=== PATIENT | female | born 1945 | race Caucasian/White ===

== ENCOUNTER 2016-12-04 20:04 | Emergency (ER) | payer OTHER ==
[~2016-12-04] VITALS: Ht 154.9 cm; Wt 51.3 kg
--- NOTE | ~2016-12-04 | CT71 ---
[facility] A [facility] RADIOLOGY TEXT RESULTS PATIENT: DERRICK DHILLON LOCATION: SED : 46 UNIT #: [id number] AGE: [address]: Marck López MD SEX: F ORDER DR: [id number] [place] [id number] E MR#: [id number] Acc #: [id number] NAME: DERRICK DHILLON. : 1945 SEX: F STUDY DATE/TIME: 12/04/2016 21:27 UNIT: SED ROOM: STUDY DESCRIPTION: CT Head Wo Contrast Attending Physician: Marck López M.D. Ordering Physician: Marck López M.D. MEDICAL IMAGING REPORT This report is preliminary unless electronic signature is present. EXAM CT brain without contrast HISTORY Syncope today. TECHNIQUE This CT exam was performed with one or more of the following radiation dose reduction techniques: automatic control, adjustment of mA and/or kV according to patient size, and iterative reconstruction. FINDINGS CT brain without contrast demonstrates no intracranial hemorrhage, mass or edema. Multiple small chronic lacunar infarcts in the basal ganglia bilaterally. Mild chronic ischemic changes in the deep white matter bilaterally. Prominent CSF space along the superior right frontal convexity at the vertex is stable compared to 09/10/2015. IMPRESSION No acute findings Dictated by... Derek Longoria M.D. THIS IS AN ELECTRONICALLY VERIFIED REPORT Derek Longoria M.D. at 12/05/2016 6:10 PM DFL/rnr TD: 12/05/2016 03:55 JOB #: [id number] MEDICAL IMAGING REPORT [facility] A [facility] RADIOLOGY TEXT RESULTS PATIENT: DERRICK DHILLON LOCATION: SED : 46 UNIT #: [id number] AGE: [address]: Marck López MD SEX: F ORDER DR: Page 1 of 1
--- NOTE | ~2016-12-04 | EKG ---
PATIENT: DERRICK DHILLON UNIT #: [id number] Ventricular Rate: 71 BPM Atrial Rate: 71 BPM P-R Interval: 140 ms QRS Duration: 90 ms Q-T Interval: 444 ms QTC Calculation(Bezet): 482 ms P [place]: 74 degrees Calculated R [place]: 3 degrees Calculated T [place]: -3 degrees Diagnosis Line: Normal sinus rhythm Diagnosis Line: Nonspecific ST and T wave abnormality Diagnosis Line: Prolonged QT Diagnosis Line: Abnormal ECG Diagnosis Line: No previous ECGs available Diagnosis Line: Confirmed by TERRIE POLANCO MD ([id number]) on Diagnosis Line: 12/06/2016 12:44:56 PM INTERPRETING MD: SHERRI MUNGUIA
--- NOTE | ~2016-12-04 | CR282 ---
[facility]. [facility] A Service of [facility] RADIOLOGY TEXT RESULTS PATIENT: DERRICK DHILLON LOCATION: SED : 46 UNIT #: [id number] AGE: [address]: Marck López MD SEX: F ORDER DR: [id number] [place] [id number] E MR#: [id number] Acc #: [id number] NAME: DERRICK DHILLON. : 1945 SEX: F STUDY DATE/TIME: 12/04/2016 21:29 UNIT: SED ROOM: STUDY DESCRIPTION: CR Wrist Min 3 View Rt Attending Physician: Marck López M.D. Ordering Physician: Marck López M.D. MEDICAL IMAGING REPORT This report is preliminary unless electronic signature is present. EXAM Right wrist 3 views HISTORY Wrist pain today after fall. FINDINGS 3 views of the right wrist demonstrate normal bone alignment. No acute fracture, joint space narrowing or dislocation. Mild soft tissue swelling along the volar and radial margins of the wrist. Generalized demineralization. Mild degenerative changes at the first CMC joint. IMPRESSION 1. Mild soft tissue swelling along the volar and radial margins of the wrist. 2. No fracture. 3. Generalized demineralization. Dictated by... Derek Longoria M.D. THIS IS AN ELECTRONICALLY VERIFIED REPORT Derek Longoria M.D. at 12/05/2016 6:10 PM DFL/kwasi TD: 12/05/2016 04:14 JOB #: [id number] MEDICAL IMAGING REPORT Page 1 of 1
[2016-12-04] MEDS ORDERED: METAXALL800 MG (20:14)
[2016-12-04] MEDS ORDERED: IBUPROFEN (20:14)
[2016-12-04] MEDS ORDERED: LEVOTHYROXINE75 MCG (20:15)
[2016-12-04] MEDS ORDERED: LOVASTATIN20 M1 (20:15)
[2016-12-04] MEDS ORDERED: DESYREL50 MG (20:15)
[2016-12-04] MEDS ORDERED: ROPINIROLE HC0.25 MG (20:16)
[2016-12-04] MEDS ORDERED: SPIRIVA18 MCG (20:16)
[2016-12-04] MEDS ORDERED: POTASSIUM GLUC500 MG (20:16)
[2016-12-04] MEDS ORDERED: VALIUM2 MG (20:16)
[2016-12-04] MEDS ORDERED: ADVAIR 250-501 EAC1 (20:17)
[2016-12-04 21:01] LABS: BASOPHIL# 0.1 X10e3 (0-0.3); BASOPHIL% 1.4 % (0-2.5); EOSINOPHIL# 0.2 X10e3 (0-0.7); EOSINOPHIL% 1.9 % (0.0-7.0); HEMATOCRIT 38.1 % (35.0-45.0); HEMOGLOBIN 12.2 gm/dL (12.0-16.0); LYMPHOCYTE# 2.8 X10e3 (1.0-3.5); LYMPHOCYTE% 29.7 % (17.0-45.0); MEAN CELL VOLUME 90.4 FL (83-96); MEAN CORPUSCULAR HGB CONC 32.1 g/dL (30-36); MEAN PLATELET VOLUME 8.3 FL (6.5-11.5); MONOCYTE% 10.5 % (3.0-12.0); NEUTROPHIL# 5.4 X10e3 (1.5-7.1); NEUTROPHIL% 56.5 % (40-75); PLATELET COUNT 312 X10e3 (140-420); RED BLOOD COUNT 4.21 X10e (3.90-5.30); RED CELL DISTRIBUTION WIDTH 13.6 % (11.0-15.5); WHITE BLOOD COUNT 9.6 X10e3 (4.0-10.5)
[2016-12-04 21:04] LABS: DIFF IND NO; INR 0.9; PROTHROMBIN TIME (PATIENT) 10.7 SECONDS (9.5-12.4)
[2016-12-04 21:08] LABS: POC - CKMB 2.1 ng/mL (0.0-7.9); POC - TROPONIN <0.05 ng/mL (<=0.05)
[2016-12-04 21:11] LABS: PARTIAL THROMBOPLASTIN TIME 28.1 SECONDS (25.6-38.1)
[2016-12-04 21:12] LABS: URINE SOURCE CLEAN CATCH
[2016-12-04 21:13] LABS: BUN/CREATININE RATIO 18.75; CALCIUM SERUM 8.9 mg/dL (8.4-10.2); CREATININE SERUM 0.8 mg/dL (0.6-1.4); GLOM FILT RATE Estimated 75.3 mL/min (>60); POTASSIUM 3.4 mmol/L (3.5-5.1)
[2016-12-04 21:14] LABS: URINE APPEARANCE CLEAR; URINE BILIRUBIN NEG (NEG); URINE BLOOD NEG (NEG); URINE COLOR YELLOW; URINE GLUCOSE NEG (NORM); URINE KETONE NEG (NEG); URINE LEUKOCYTE ESTERASE TRACE (NEG); URINE NITRATE NEG (NEG); URINE PH 5.5 (5-8); URINE PROTEIN NEG (NEG); URINE SPECIFIC GRAVITY <=1.005 (1.003-1.035); URINE UROBILINOGEN 0.2 MG/DL (NORM)
[2016-12-04 21:16] LABS: MICRO INDICATED? YES
[2016-12-04 21:22] LABS: CULTURE INDICATED? YES; URINE BACTERIA NEG (NEG); URINE MUCUS PRESENT; URINE SQUAMOUS EPITHELIAL CELL FEW /[HPF]
== END 2016-12-04 23:56 ==
LOC: SED 20:04
PROVIDERS: Emergency Medicine
DX: S63.501A Unspecified sprain of right wrist, initial encounter (principal); S00.83XA Contusion of other part of head, initial encounter; E87.6 Hypokalemia; E78.5 Hyperlipidemia, unspecified; J44.9 Chronic obstructive pulmonary disease, unspecified; Z90.710 Acquired absence of both cervix and uterus; Z90.49 Acquired absence of other specified parts of digestive tract; W19.XXXA Unspecified fall, initial encounter; Y92.009 Unspecified place in unspecified non-institutional (private) residence as the place of occurrence of the external cause
CPT/HCPCS: 36415; 70450; 73110; 80048; 81003; 82553; 83735; 84484; 85025; 85610; 85730; 87086; 93005; 99285